=== PATIENT | female | born 1995 | race African-American/Black ===

== ENCOUNTER 2024-08-22 09:28 | Emergency (ER) | payer OTHER, SELFPAY ==
[2024-08-22 09:54] VITALS: BP 118/69; PULSE 73; RESP 16; TEMP 36.2; O2SAT 100
--- NOTE | 2024-08-22 10:17 | ED.DIZZY ---
HPI - Dizziness General Chief Complaint: Dizziness Stated Complaint: LIGHT HEADED/NAUSEA/ELEVATED BLOOD PRESSURE Source: patient Mode of arrival: ambulatory Limitations: no limitations History of Present Illness HPI Narrative: Patient is a 29 year old female that presents to the clinic with complaints of dizziness that started yesterday. She states that she was riding the train from [place] to [facility] yesterday when it started. She has not had a period for several months, but is not concerned for any . Denies any fevers, nausea, vomiting, or dehydration. Related Data Allergies Allergy/AdvReac Type Severity Reaction Status Date / Time No Known Allergies Allergy Verified 08/22/24 10:31 Review of Systems Review of Systems: CONSTITUTIONAL: Denies body aches, fever, chills, or sweats. EYES: Denies visual changes, redness, or discharge. ENT: Denies rhinorrhea, congestion, sore throat, or otalgia. CARDIOVASCULAR: Denies chest pain, palpitations, or edema. RESPIRATORY: Denies cough or dyspnea. GASTROINTESTINAL: Denies abdominal pain, nausea, vomiting, or diarrhea. GENITOURINARY: Denies dysuria or hematuria. SKIN: Denies rash, itching, or wounds. MUSCULOSKELETAL: Denies back pain, joint pain, or myalgia. NEUROLOGIC: Denies headache, numbness, tingling, or weakness. Reports dizziness. PSYCH: Denies depression or anxiety. All systems reviewed & are unremarkable except as noted in HPI and below PMFSH Comments At time of signature, I have reviewed and agree with nursing past medical, surgical, social and family history unless otherwise noted. Please see nursing chart for further information. There is no relevant family history pertinent to the presenting complaint. Exam Narrative: GENERAL: Well-appearing, well-nourished, and in no acute distress. EYES: EOMI. No redness or drainage. Conjunctivae normal. ENT: Mucous membranes pink and moist. Nares clear. No rhinorrhea. TMs fluid filled but intact. No throat Erythema or tonsillar exudate, uvula midline. NECK: Normal AROM. Supple. No lymphadenopathy. CHEST: No respiratory distress. Clear to auscultation. HEART: Regular rate and rhythm. No murmur appreciated. Normal peripheral pulses. ABDOMEN: Soft, nontender, nondistended, normal active bowel sounds. SKIN: Warm, dry, no rash. Capillary refill normal. Normal skin turgor. NEURO: No focal deficits. Alert and oriented x3. Gait steady. PSYCH: Normal affect. No signs of depression or anxiety. Course Course Level of Care: Express Care Visit Vital Signs Vital signs: Vital Signs Temperature 97.1 F L 08/22/24 09:54 Pulse Rate 73 08/22/24 09:54 Respiratory Rate 16 08/22/24 09:54 Blood Pressure 118/69 08/22/24 09:54 Pulse Oximetry 100 08/22/24 09:54 Temperature 97.1 F L 08/22/24 09:54 Pulse Rate 73 08/22/24 09:54 Respiratory Rate 16 08/22/24 09:54 Blood Pressure 118/69 08/22/24 09:54 Pulse Oximetry 100 08/22/24 09:54 Reviewed. MDM - Dizziness MDM Narrative Medical decision making narrative: Discussed physical exam findings. test to rule out . Meclizine given in patient. She states that she feels better. Discussed in length possible etiologies of dizzy and possible transfer to ER. Patient stated she wanted to go home. Advised supportive measures and signs/symptoms to go to the ER. Pt is appropriate for outpatient treatment and follow up. Differential Diagnosis Differential diagnosis: Likely orthostatic hypotension and other (, vertigo) Lab Data Labs: Lab Results 08/22/24 Range/Units 10:33 POC Urine HCG, Qual Negative (Negative) Critical Care Time Critical Care Time Critical Care Time: No Discharge Plan Discharge Clinical Impression: Dizziness Patient Disposition: Home Condition: Stable Instructions: Dizziness (ED) Additional Instructions: Take medications as prescribed. Certain movements done in a specific way can help vertigo. You can try one or both of the following maneuvers: Vivek Maneuver: 1) Sit with a pillow behind your head. Turn head to the affected side, lie down quickly keeping your head turned. 2) Remain in this position until dizziness stops + 30 seconds 3) Slowly turn your head in the opposite direction. Remain in that position until you are not dizzy + 30 seconds 4) Staying on that side, raise onto your shoulder/side keeping your head turned and your face pointed to the floor. Stay in this position until you are not dizzy + 30 seconds 5) Slowly return to sitting 6) Repeat every hour until vertigo is resolved. Vertigo Maneuver: 1) Kneel on the floor, look up to the ceiling. Turn the head upside down so the top of your head touches the floor 2) Turn your head quickly to the affected side. Wait 30 seconds 3) Quickly raise your head to be level with your back (back is flat/horizontal). Stay in this position for 30 seconds 4) Raise up to your knees keeping your head turned 5) Repeat every hour until vertigo resolves If you experience dizziness that persists, severe headache, weakness in any extremity, difficulty speaking or swallowing, you pass out, or for any other urgent concerns you should go to the ER. Make a follow-up appointment with your PCP for further evaluation of your vertigo. Patient Language: Jamaican Prescriptions: New meclizine 12.5 mg tablet 12.5 mg PO TID PRN (Reason: dizziness) Qty: 20 0RF Follow-up/Referrals: PHYSICIAN,EMBOSSING UNIT OPERATOR [Primary Care Provider] - Stand Alone Forms: Work/School Release IP Time of Disposition: 11:23
[2024-08-22 10:36] LABS: BEDSIDEPREGUCG Negative (Negative)
[2024-08-22] MEDS: MECLIZINE HCL 25 MG TABLET PO (10:55)
== END 2024-08-22 11:26 | disposition home or self-care (01) ==
DX: R42 Dizziness and giddiness (principal)
CPT/HCPCS: 81025; 99203; A9270; G0463

== ENCOUNTER 2024-12-08 12:40 | Emergency (ER) | payer OTHER, SELFPAY ==
--- NOTE | 2024-12-08 12:49 | ED.DIZZY ---
HPI - Dizziness General Chief Complaint: Dizziness Stated Complaint: DIZZINESS Time Seen by Provider: 12/08/24 13:06 Source: patient Mode of arrival: ambulatory Limitations: no limitations History of Present Illness HPI Narrative: 29 y/o female presented for c/o multiple episodes of dizziness since she woke this morning. Says it is random when it comes on, mostly with changing position. Described as feeling off balance. Has changed her diet to reduce carbs, but denies significantly intense workouts. Has been taking supplements for PCOS, and denies menses for over one year. Took negative home test today. Denies head congestion, cough, palpitations, cp, vision changes,headaches, n/v. Related Data Allergies Allergy/AdvReac Type Severity Reaction Status Date / Time No Known Allergies Allergy Verified 12/08/24 12:50 Review of Systems Review of Systems: CONSTITUTIONAL: Denies body aches, fever, chills, or sweats. EYES: Denies visual changes, redness, or discharge. ENT: Denies rhinorrhea, congestion, sore throat, or otalgia. CARDIOVASCULAR: Denies chest pain, palpitations, or edema. RESPIRATORY: Denies cough or dyspnea. GASTROINTESTINAL: Denies abdominal pain, nausea, vomiting, or diarrhea. GENITOURINARY: Denies dysuria or hematuria. SKIN: Denies rash, itching, or wounds. MUSCULOSKELETAL: Denies back pain, joint pain, or myalgia. NEUROLOGIC: reports intermittent dizziness Denies headache, numbness, tingling, or weakness. PSYCH: Denies depression or anxiety. All systems reviewed & are unremarkable except as noted in HPI and below PMFSH Past Medical History Medical History (Updated 12/08/24 @ 13:34 by Rosa Black APRN) PCOS (polycystic ovarian syndrome) Comments At time of signature, I have reviewed and agree with nursing past medical, surgical, social and family history unless otherwise noted. Please see nursing chart for further information. There is no relevant family history pertinent to the presenting complaint Exam Narrative: GENERAL: Well-appearing, and in no acute distress. HEAD: Normocephalic, atraumatic. EYES: EOMI. No redness or drainage. Conjunctivae normal. ENT: Mucous membranes pink and moist. No rhinorrhea. TMs normal bilaterally. Throat normal. Uvula midline. NECK: Normal AROM. CHEST: No respiratory distress. Clear to auscultation. HEART: Regular rate and rhythm. No murmur appreciated. Normal peripheral pulses. ABDOMEN: Soft, nontender, nondistended, normal active bowel sounds. SKIN: Warm, dry, no rash. Capillary refill normal. Normal skin turgor. NEURO: No focal deficits. Alert and oriented x3. Gait steady. PSYCH: Normal affect. Course Course Emergency Course: Patient is aware of diagnosis, understands and agrees to treatment plan. Anticipatory guidance given. Patient agrees to follow-up as directed and is aware of reasons to seek care at the emergency department. Portions of this record may have been created with voice recognition software Level of Care: Express Care Visit Vital Signs Vital signs: Vital Signs Temperature 97.1 F L 12/08/24 12:54 Pulse Rate 84 12/08/24 12:54 Respiratory Rate 16 12/08/24 12:54 Blood Pressure 122/70 12/08/24 12:54 Pulse Oximetry 99 12/08/24 12:54 Temperature 97.1 F L 12/08/24 12:54 Pulse Rate 84 12/08/24 12:54 Respiratory Rate 16 12/08/24 12:54 Blood Pressure 122/70 12/08/24 12:54 Pulse Oximetry 99 12/08/24 12:54 MDM - Dizziness MDM Narrative Medical decision making narrative: Pt with reports of intermittent dizziness this morning. VSS, orthostatics WNL, BS 79. Discussed physical exam findings. Advised supportive measures and signs/symptoms to go to the ER. Pt is appropriate for outpt treatment and f/u. Differential Diagnosis Differential diagnosis: Likely adverse reaction to drug, benign paroxysmal positional vertigo, orthostatic hypotension, vertebral basilar insufficiency, acute vestibular neuronitis, transient cerebral ischemia and other (anemia, dehydration, sepsis, arrhythmia, labyrinthitis, sinusitis, CVA, migraine) Discharge Plan Discharge Clinical Impression: Benign paroxysmal positional vertigo Qualifiers: Laterality: unspecified laterality Qualified Code(s): H81.10 - Benign paroxysmal vertigo, unspecified ear Patient Disposition: Home Condition: Stable Instructions: Antibiotic Form, Benign Paroxysmal Positional Vertigo (ED) Additional Instructions: Change positions slowly Sit down immediately if you feel dizzy or lightheaded Increase water intake, stay hydrated Watch for worsening symptoms (headache, vision changes, dizziness that does not go away, chest pain, heart racing, sweating) Go to the ER for these symptoms or any other concerns. Follow-up with your primary care provider Patient Language: Kittitian Prescriptions: New meclizine 25 mg tablet 25 mg PO TID PRN (Reason: dizziness) Qty: 30 0RF Follow-up/Referrals: Aliosn,MD Shantanu [Primary Care Provider, Unknown] Time of Disposition: 13:33
[2024-12-08 12:54] VITALS: BP 122/70; PULSE 84; RESP 16; TEMP 36.2; O2SAT 99
[2024-12-08 13:26] VITALS: BP 112/71; PULSE 65
[2024-12-08 13:27] VITALS: BP 113/70; BP 116/67; PULSE 80
== END 2024-12-08 13:35 | disposition home or self-care (01) ==
PROVIDERS: Emergency Provider Nurse Practitioner Family; PCP Internal Medicine
DX: H81.10 Benign paroxysmal vertigo, unspecified ear (principal); E28.2 Polycystic ovarian syndrome
CPT/HCPCS: 82948; 99213; G0463